=== PATIENT | female | born 1960 | race Hispanic/Latino ===

== ENCOUNTER 2017-12-29 15:44 | Observation (INO) | payer OTHER ==
[~2017-12-29] VITALS: Ht 154.9 cm; Wt 56.4 kg
[2017-12-29] MEDS ORDERED: SODIUM CHLORIDE FLUSH 10 ML SYR INJ PRN ×2 (16:00→18:45)
[2017-12-29] MEDS ORDERED: ASPIRIN 81 MG CHEW TAB PO ONE ×2 (16:00→18:45)
[2017-12-29 16:23] LABS: BASOPHILS # (AUTO) 0.1 (0.0-0.1); BASOPHILS % 0.9 % (0.0-1.0); EOSINOPHILS # (AUTO) 0.3 (0.0-0.4); EOSINOPHILS % 3.9 % (0.0-6.0); HEMATOCRIT 43.1 % (34.2-44.1); HEMOGLOBIN 13.6 g/dL (12.0-16.0); LYMPHOCYTES # (AUTO) 2.1 (1.0-3.2); LYMPHOCYTES % 30.4 % (18.0-39.1); MEAN CORPUSCULAR HEMOGLOBIN 31.2 pg (28-32); MEAN CORPUSCULAR HGB CONC 31.6 g/dL (31-35); MEAN CORPUSCULAR VOLUME 98.9 fL (81-99); MONOCYTES # (AUTO) 0.7 (0.2-0.8); NEUTROPHILS # (AUTO) 3.7 (2.1-6.9); NEUTROPHILS % 54.5 % (38.7-80.0); PLATELET COUNT 279 x10e3/uL (140-360); RED BLOOD COUNT 4.36 x10e6/uL (3.6-5.1); RED CELL DISTRIBUTION WIDTH 12.2 % (11.7-14.4)
--- NOTE | 2017-12-29 16:32 | Diagnostic Imaging Report ---
PROCEDURE: A single AP view of the chest. COMPARISON: None. INDICATIONS: CHEST PAIN FINDINGS: Lines/tubes: None. Lungs: The lungs are well inflated and clear. There is no evidence of pneumonia or pulmonary edema. Pleura: There is no pleural effusion or pneumothorax. Heart and mediastinum: The heart and the mediastinum are unremarkable. Bones: No acute bony abnormality. IMPRESSION: 1. No acute cardiopulmonary disease. Dictated by: Jd Tellez M.D. on 12/29/2017 at 16:41 Electronically approved by: Jd Tellez M.D. on 12/29/2017 at 16:41
[2017-12-29 16:39] LABS: INR 0.81; PROTHROMBIN TIME 11.6 seconds (11.9-14.5)
[2017-12-29 16:40] LABS: PARTIAL THROMBOPLASTIN TIME 29.1 seconds (23.8-35.5)
[2017-12-29 16:44] LABS: ALANINE AMINOTRANSFERASE 74 IU/L (0-55); ALBUMIN 4.1 g/dL (3.5-5.0); ALBUMIN/GLOBULIN RATIO 1.2 (0.8-2.0); ALKALINE PHOSPHATASE 142 IU/L (40-150); ANION GAP 12.6 mmol/L (8-16); BLOOD UREA NITROGEN 26 mg/dL (7-26); BUN/CREATININE RATIO 37 (6-25); CALCIUM 8.7 mg/dL (8.4-10.2); CARBON DIOXIDE 24 mmol/L (22-29); CHLORIDE 106 mmol/L (98-107); CREATINE KINASE 52 IU/L (29-168); CREATININE, SERUM 0.71 mg/dL (0.57-1.11); EST GLOMERULAR FILTRATION RATE > 60 ML/MIN (60-); GLUCOSE 92 mg/dL (74-118); POTASSIUM 4.6 mmol/L (3.5-5.1); SODIUM 138 mmol/L (136-145)
[2017-12-29 16:48] LABS: BILIRUBIN,URINE 1+ (NEGATIVE); COLOR,URINE YELLOW (YELLOW); KETONES,URINE NEGATIVE (NEGATIVE); LEUKOCYTE ESTERASE ,URINE TRACE (NEGATIVE); NITRITE,URINE NEGATIVE (NEGATIVE); PROTEIN,URINE DIPSTICK NEGATIVE (NEGATIVE); URINE UROBILINOGEN 0.2 mg/dL (0.2 - 1)
[2017-12-29 16:50] LABS: CLARITY,URINE SL CLOUDY (CLEAR)
[2017-12-29 16:51] LABS: TROPONIN I 0.016 ng/mL (0-0.300)
[2017-12-29 17:00] LABS: BACTERIA,URINE FEW /HPF; EPITHELIAL CELLS,URINE FEW /LPF; RBC,URINE 0-5 /HPF (0-5)
[2017-12-29] MEDS: ENOXAPARIN SOD INJ 60 MG/0.6 ML SYR SC SCH (20:51)
[2017-12-30] MEDS ORDERED: TOPIRAMATE25 MG PO (01:23)
[2017-12-30] MEDS ORDERED: CARBAMAZEPINE200 MG PO (01:26)
[2017-12-30] MEDS ORDERED: NITROGLYCERIN0.4 MG SL (01:28)
[2017-12-30] MEDS ORDERED: METOPROLOL SUCC25 MG (01:28)
[2017-12-30 01:34] LABS: CREATINE KINASE 45 IU/L (29-168)
[2017-12-30 01:39] VITALS: BP 129/69
[2017-12-30 01:42] LABS: TROPONIN I < 0.001 ng/mL (0-0.300)
[2017-12-30 01:43] VITALS: BP 129/69
[2017-12-30 04:00] VITALS: BP 117/63
[2017-12-30 07:07] LABS: CHOL/HDL RATIO 2.4 (3.0-3.6); CHOLESTEROL 181 MD/DL (0-199); CREATINE KINASE 40 IU/L (29-168); HDL CHOLESTEROL 75 MG/DL (40-60); LDL CHOLESTEROL 94 MG/DL (60-130); TRIGLYCERIDES 62 MG/DL (0-149)
[2017-12-30 07:08] LABS: TROPONIN I < 0.001 ng/mL (0-0.300)
[2017-12-30 08:00] VITALS: BP 112/56
[2017-12-30] MEDS ORDERED: ASPIRIN 81 MG ENTERIC COATED PO SCH (09:00)
[2017-12-30] MEDS: ENOXAPARIN SOD INJ 60 MG/0.6 ML SYR SC SCH (09:03)
[2017-12-30 12:00] VITALS: BP 117/57
--- NOTE | 2017-12-30 16:46 | Progress Note ---
DATE: December 30, 2017 CARDIOLOGY PROGRESS NOTE REQUESTING PHYSICIAN: Dr. Jose Luis Meraz REASON FOR CONSULTATION: Chest pain. HISTORY OF PRESENT ILLNESS: This is a 57-year-old woman with a history of palpitation who presented with complaints of chest pain. She reports she has had chest pain for years, typically occurring once every few months, lasting 5 minutes at a time, and that is relieved with 2 sublingual nitroglycerin. However, she noted more frequent episodes in these last few days, starting Friday night, as well as Friday morning. She described it as a squeezing chest pain starting in the stomach and radiating to her chest. This pain was associated with nausea and jaw pain. She therefore presented to the ER for further evaluation. REVIEW OF SYSTEMS: Negative except as per HPI. PAST MEDICAL HISTORY: Palpitations. PAST SURGICAL HISTORY: 1. Gastric bypass. 2. Cholecystectomy. 3. Tummy tuck. 4. Venous ablation. 5. Hysterectomy. ALLERGIES: PLEASE SEE EMR. MEDICATIONS: Please see medication reconciliation. SOCIAL HISTORY: No tobacco, alcohol, or illicit drugs. FAMILY HISTORY: Pertinent for father with history of 3-vessel CABG. PHYSICAL EXAMINATION: VITAL SIGNS: Temperature 96.2 degrees, pulse 98, respiratory rate 20, blood pressure 117/57, oxygen saturation 98% on room air. GENERAL: Awake, alert, well-developed, well-nourished, in no acute distress. HEENT: Normocephalic, atraumatic. Pupils equal. No scleral icterus. NECK: Supple. No thyromegaly or cervical lymphadenopathy. No carotid bruits. LUNGS: Clear to auscultation bilaterally. No wheezes or crackles. CARDIOVASCULAR: Normal rate, regular rhythm. No murmur. Normal S1, S2. ABDOMEN: Soft, nontender. EXTREMITIES: No edema. NEUROLOGIC: Nonfocal exam. LABORATORIES: Troponin less than 0.001. Cholesterol 181, LDL 94, HDL 75, triglyceride 62. EKG is normal sinus rhythm, minimal voltage criteria for LVH; may be normal variant. IMPRESSION: 1. Chest pain. 2. History of palpitations. RECOMMENDATIONS: Given patient's risk factors, will proceed with treadmill nuclear stress test for further evaluation on the patient's chest pain. She has ruled out for a myocardial infarction. If her stress test is normal, alternate etiologies for her chest pain include coronary spasm and esophageal spasm. Could attempt trial of diltiazem extended release 120 mg p.o. daily and assess for improvement. Assess for change in symptoms. Otherwise, continue current cardiac medications. Thank you for this consult. We will continue to follow. Job#: [id number] [place]
[2017-12-30] MEDS ORDERED: DILTIAZEM HCL 120 MG CAP CD PO SCH (17:30)
--- NOTE | 2017-12-30 17:42 | Cardiology Report ---
DATE OF STUDY: December 30, 2017 PROCEDURE TITLE Rest stress single isotope SPECT imaging with exercise stress and gated SPECT imaging. INDICATIONS: Chest pain. PROCEDURE: The patient performed treadmill exercise using a Rigoberto protocol, exercising for 8 minutes 24 seconds to stage 3, and completing estimated work load of 10.1 metabolic equivalents (METs). The test was terminated due to fatigue. Heart rate was 61 beats per minute at rest and increased to 142 beats per minute at peak exercise, which was 87% of maximum predicted heart rate. The rest blood pressure was 140/84 and increased to 202/90 mm, which is a hypertensive response. Patient denied any symptoms other than fatigue during the procedure. Resting electrocardiogram demonstrated normal sinus rhythm. There were no ST segment changes consistent with myocardial ischemia. Myocardial perfusion imaging was performed at rest following the injection of 11 mCi of tetrofosmin. At peak pharmacologic effect, the patient was injected with 31 mCi of tetrofosmin and exercise continued for one minute. Gated post stress tomographic imaging was performed. The overall quality of the study is fair. Attenuation artifact is absent. Left ventricular cavity is noted to be normal on the rest and stress studies. SPECT images demonstrate homogeneous tracer distribution throughout the myocardium. Gated SPECT imaging reveals normal myocardial thickening and wall motion. Left ventricular ejection fraction was calculated at 68%. IMPRESSION: Normal clinical and ECG exercise stress test, hypertensive response. Exercise myocardial perfusion imaging is normal. Overall left ventricular systolic function was normal without regional wall motion abnormalities. Job#: [id number]
[2017-12-30] MEDS ORDERED: DILTIAZEM 24HR120 M1 PO (17:51)
[2017-12-30] MEDS ORDERED: NEXIUM40 MG PO (17:52)
== END 2017-12-30 18:24 | disposition home or self-care (01) ==
LOC: ER 15:44 → ERHOLD 18:59 → IMCU 12-30 00:43
DX: R07.89 Other chest pain (principal); Z98.84 Bariatric surgery status; Z88.0 Allergy status to penicillin; R00.2 Palpitations
CPT/HCPCS: 36415 ×2; 71010; 78452; 80053; 80061; 80156; 81001; 82550 ×2; 82553 ×2; 82948; 84484 ×2; 85025; 85610; 85730; 93005 ×2; 93017; 96372; 99284; A9502; G0378 ×2; J1650 ×2; 71045

== ENCOUNTER → 2019-03-16 | Day surgery (SDC) | payer OTHER ==
[2019-03-09 17:45] LABS: BASOPHILS # (AUTO) 0.1 (0.0-0.1); BASOPHILS % 1.1 % (0.0-1.0); EOSINOPHILS # (AUTO) 0.3 (0.0-0.4); EOSINOPHILS % 4.1 % (0.0-6.0); HEMATOCRIT 37.5 % (34.2-44.1); HEMOGLOBIN 11.8 g/dL (12.0-16.0); LYMPHOCYTES # (AUTO) 1.9 (1.0-3.2); LYMPHOCYTES % 28.6 % (18.0-39.1); MEAN CORPUSCULAR HEMOGLOBIN 31.8 pg (28-32); MEAN CORPUSCULAR HGB CONC 31.5 g/dL (31-35); MEAN CORPUSCULAR VOLUME 101.1 fL (81-99); MONOCYTES # (AUTO) 0.6 (0.2-0.8); MONOCYTES % 9.6 % (4.4-11.3); NEUTROPHILS # (AUTO) 3.8 (2.1-6.9); NEUTROPHILS % 56.3 % (38.7-80.0); PLATELET COUNT 311 x10e3/uL (140-360); RED BLOOD COUNT 3.71 x10e6/uL (3.6-5.1); RED CELL DISTRIBUTION WIDTH 12.6 % (11.7-14.4)
[2019-03-09 17:53] LABS: INR 0.85; PROTHROMBIN TIME 12.1 seconds (11.9-14.5)
[2019-03-09 18:27] LABS: ALANINE AMINOTRANSFERASE 21 IU/L (0-55); ALBUMIN 3.7 g/dL (3.5-5.0); ALBUMIN/GLOBULIN RATIO 1.2 (0.8-2.0); ALKALINE PHOSPHATASE 111 IU/L (40-150); BLOOD UREA NITROGEN 22 mg/dL (7-26); BUN/CREATININE RATIO 33 (6-25); CALCIUM 8.9 mg/dL (8.4-10.2); CARBON DIOXIDE 26 mmol/L (22-29); CHLORIDE 103 mmol/L (98-107); CREATININE, SERUM 0.67 mg/dL (0.57-1.11); EST GLOMERULAR FILTRATION RATE > 60 ML/MIN (60-); GLUCOSE 104 mg/dL (74-118); SODIUM 133 mmol/L (136-145)
[2019-03-16] VITALS (8 sets, daily range): BP systolic 103–133; BP diastolic 57–77
[~2019-03-16] VITALS: Ht 154.9 cm; Wt 54.4 kg
[~2019-03-16] MED LIST: CARBAMAZEPINE200 MG PO; DILTIAZEM 24HR120 M1 PO; FENTANYL CITRATE/PF 100MCG/2 ML INJ ONE; HEPARIN SOD (PORCINE) 1000 UNIT/ML 30ML ONE; HEPARIN SOD/SOD CHLORIDE 2,000 ML ONE; IOPAMIDOL 370 MG/ML 200 ML INFUS..BTL INJ ONE; LIDOCAINE HCL 2% LOCAL 20 ML VIAL ONE; MECLIZINE HCL12.5 MG PO; METOPROLOL SUCC25 MG; MIDAZOLAM HCL 2 MG/2 ML VIAL ONE; NEXIUM40 MG PO; NITROGLYCERIN/D5W 200 MCG/ML 250 ML ONE; NITROGLYCERIN0.4 MG SL; NORTRIPTYLINE H10 MG PO; RANEXA500 MG PO; SODIUM CHLORIDE 0.9% 1000ML 1,000 ML ONE; TOPIRAMATE25 MG PO; VERAPAMIL HCL 2.5 MG/ML 2 ML VIAL ONE
--- OUTSIDE RECORDS SUMMARY | 2019-03-16 06:18 | XMS REPORT ---
Author Author [facility] Address Unknown Phone Unavailable Care Team Providers Care Industrial Engineering Manager Name Role Phone ISABEL CARRANZA Unavailable Unavailable Problems This patient has no known problems. Allergies, Adverse Reactions, Alerts This patient has no known allergies or adverse reactions. Medications This patient has no known medications. Results Test Description Test Time Test Comments Text Results Atomic Results Result Comments Stress Test - Treadmill ONLY [place] [address] Patient Name : PAUL RODRIGUEZ MR #: [id number] : 1960 Age/Sex: 57/F Adm Physician : ISABEL CARRANZA MD Admit Date : 12/29/17 Location : [facility] Room/Bed : [place] [address] REPORT: Cardiology Report DATE OF STUDY: December 30, 2017 PROCEDURE TITLE Rest stress single isotope SPECT imaging with exercise stress and gated SPECT imaging. INDICATIONS: Chest pain. PROCEDURE: The patient performed treadmill exercise using a Rigoberto protocol, exercising for 8 minutes 24 seconds to stage 3, and completing estimated work load of 10.1 metabolic equivalents (METs). The test was terminated due to fatigue. Heart rate was 61 beats per minute at rest and increased to 142 beats per minute at peak exercise, which was 87% of maximum predicted heart rate. The rest blood pressure was 140/84 and increased to 202/90 mm, which is a hypertensive response. Patient denied any symptoms other than fatigue during the procedure. Resting electrocardiogram demonstrated normal sinus rhythm. There were no ST segment changes consistent with myocardial ischemia. Myocardial perfusion imaging was performed at rest following the injection of 11 mCi of tetrofosmin. At peak pharmacologic effect, the patient was injected with 31 mCi of tetrofosmin and exercise continued for one minute. Gated post stress tomographic imaging was performed. The overall quality of the study is fair. Attenuation artifact is absent. Left ventricular cavity is noted to be normal on the rest and stress studies. SPECT images demonstrate homogeneous tracer distribution throughout the myocardium. Gated SPECT imaging reveals normal myocardial thickening and wall motion. Left ventricular ejection fraction was calculated at 68%. IMPRESSION: Normal clinical and ECG exercise stress test, hypertensive response. Exercise myocardial perfusion imaging is normal. Overall left ventricular systolic function was normal without regional wall motion abnormalities. Job#: [id number] Signature Date Dictated By: CATALINA STEVENSON MD Transcribed By: SMEDS on 12/30/17 <Electronically signed by CATALINA STEVENSON MD><<Signature on File>>01/08/18 1601 COPY TO: CHEST SINGLE (NOT PORTABLE) [place] [address] Patient Name: PAUL RODRIGUEZ MR #: [id number] : 1960 Age/Sex: 57/F Req #: [id number] Adm Physician: Ordered by: SHELBIE PAUL Report #: [id number] Location: ER Room/Bed: Procedure: [id number] DX/CHEST SINGLE (NOT PORTABLE) Exam Date: 12/29/17 Exam Time: 1620 REPORT STATUS: Signed PROCEDURE: A single AP view of the chest. COMPARISON: None. INDICATIONS: CHEST PAIN FINDINGS: Lines/tubes: None. Lungs: The lungs are well inflated and clear. There is no evidence of pneumonia or pulmonary edema. Pleura: There is no pleural effusion or pneumothorax. Heart and mediastinum: The heart and the mediastinum are unremarkable. Bones: No acute bony abnormality. IMPRESSION: 1. No acute cardiopulmonary disease. Dictated by: Jd Purcell M.D. on 12/29/2017 at 16:41 Electronically approved by: Jd Purcell M.D. on 12/29/2017 at 16:41 Dictated By: JD PURCELL MD 1641 Transcribed By: PASTOR on 12/29/17 1641 COPY TO: SHELBIE PAUL
--- OUTSIDE RECORDS SUMMARY | 2019-03-16 06:18 | XMS REPORT | Clinical Summary ---
Author Author [facility] Address Unknown Phone Unavailable Care Team Providers Care Mill Work Name Role Phone Darion Juan MD PCP Allergies Comments Active Allergy Reactions Severity Noted Date Hydrocodone Palpitations High 02/19/2018 Penicillins Rash Medium 02/19/2018 Medications End Date Status Medication Sig Dispensed Refills Start Date Active metoprolol succinate XL TK 1 T PO QD 3 (TOPROL-XL) 25 mg 24 hr 8 tablet Active nitroglycerin (NITROSTAT) Take 0.4 mg 0 0.4 MG SL tablet by mouth as 8 needed. Active topiramate (TOPAMAX) 50 Take 50 mg by 0 MG tablet mouth 2 (two) 8 times a day. Active RANEXA 500 mg 12 hr ER TK 1 T PO 3 tablet BID 8 Active carBAMazepine (TEGretol) Take 200 mg 0 200 mg tablet by mouth 3 (three) times a day. Pt taking 3 tablets at 5AM, 1.5 tablet at 11AM and 1.5 tablet at 5PM. 05/07/2019 Active timolol (TIMOPTIC) 0.25 % Apply 1 drop 10 mL 12 ophthalmic to eye 2 8 solutionIndications: (two) times a Borderline glaucoma day. (glaucoma suspect), bilateral 05/07/2018 Discontinued timolol (TIMOPTIC) 0.25 % Apply 1 drop 10 mL 12 ophthalmic solution to eye 2 8 (two) times a day. Active Problems Problem Noted Date Encounter for cosmetic surgery 03/12/2018 Encounters Care Team Description Date Type Specialty Sherrie Hector Borderline glaucoma (glaucoma suspect), bilateral (Primary Dx) 05/07/2018 Refill Ophthalmology after 03/15/2018 Family History Medical History Relation Name Comments Heart disease Father Diabetes Mother Relation Name Status Comments Brother Alive Father Alive Mother Alive Sister Alive Social History Date Tobacco Use Types Packs/Day Years Used Never Smoker Smokeless Tobacco: Never Used Alcohol Use Drinks/Week oz/Week Comments Yes monthly Sex Assigned at Date Recorded Not on file Industry Job Start Date Occupation Not on file Not on file Not on file Travel End Travel History Travel Start No recent travel history available. Last Filed Vital Signs Not on file Plan of Treatment Health Maintenance Due Date Last Done Comments CERVICAL CANCER SCREENING 01/31/1981 BREAST CANCER SCREENING 01/31/2010 COLON CANCER SCREENING 01/31/2010 SHINGLES VACCINES (#1) 01/31/2010 INFLUENZA VACCINE 07/01/2019 Implants Device Identifier Shelf Expiration Date Model / Serial / Lot Implanted Type Area Manufactur er 04/20/2022 334 1152 / [id number] / [id number] Breast Imp Cpg Cohesive Iii Med Plastic or Right: Breast MENTOR Height High Proj 345cc - Cosmetic WORLDWIDE [id number] - [id number] Implants [employer] Implanted: Qty: 1 on 03/12/2018 by or Tissue Josué Armas MD Expanders or Sets 04/03/2022 334 [id number] / / Breast Imp Cpg Cohesive Iii Med Plastic or Left: Breast MENTOR Height High Proj 345cc - [id number] Cosmetic WORLDWIDE Implanted: Qty: 1 on 03/12/2018 by Implants LLC Josué Armas MD or Tissue Expanders or Sets 12/31/2022 [id number] / / [id number] Drain Wnd [facility] 02/13in Rnd ls Surgical N/A: N/A BARD Fl-Flut W/ 02/13in Trocar - Implants; MEDICAL [id number] Expanders; DIVISION Implanted: Qty: 3 on 03/12/2018 by Extenders; Josué Armas MD Surgical Wires 11/30/2022 [id number] / / [id number] Drain Wnd nl 15fr 02/13in Rnd Hbls Surgical N/A: N/A BARD Fl-Flut W02/13in Trocar - Implants; MEDICAL [id number] Expanders; DIVISION Implanted: Qty: 1 on 03/12/2018 by Extenders; Josué Armas MD Surgical Wires Results Not on fileafter 03/15/2018 Insurance Payer Benefit Subscriber ID Type Phone Address Plan / Group ÁNGELTROGER NEALTNA xxxxxxxxxx HMO HMO,POS,EP O, MC/EC Advance Directives Patient has advance care planning documents on file. For more information, mika snyder contact: Yimi Vinson [address] [place] [address]
--- OUTSIDE RECORDS SUMMARY | 2019-03-16 06:18 | XMS REPORT | Summary of Care ---
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 (Final) - 01/22/18 Other intermediate (current) drug therapy (Final) - Discharge Disposition: Home or Self Care Attending Physician: Vitaly Almaguer MD Referring Physician: Vitaly Almaguer MD Vital Signs Most recent to 1 oldest [Reference Range]: Height 154.94 cm (01/15/18 2:05 PM) Blood Pressure 128/78 mmHg [90-140/60-90 mmHg] (01/15/18 2:31 PM) Respiratory Rate 20 BRMIN [14-20 BRMIN] (01/15/18 2:31 PM) Peripheral Pulse 65 bpm Rate [60-100 bpm] (01/15/18 2:31 PM) Weight 55.966 kg (01/15/18 2:05 PM) Body Mass Index 23.31 m2 (01/15/18 2:05 PM) Problem List Condition Effective Dates Status Health Status Informant Angina at Active rest(Confirmed) Cold(Confirmed) Resolved Migraines(Confirmed) Active Seizure(Confirmed)1 Active 1right eye only Allergies, Adverse Reactions, Alerts Substance Reaction Severity Status penicillins Active HYDROcodone Active Medications Benadryl 50 mg, Route: PO, ONCE, Dosing Weight 55.966, kg, Start date: 01/16/18 7:24:[address], Stop date: 01/16/18 7:24:00 ACCOUNTS PAYABLE ANALYST Start Date: 01/16/18 Stop Date: 01/16/18 Status: Completed carBAMazepine 200 mg oral tablet 200 mg=1 tab, PO, BID, 0 Refill(s) Start Date: 01/15/18 Status: Ordered carBAMazepine 200 mg oral tablet 600 mg=3 tab, PO, Daily, 0 Refill(s) Start Date: 01/15/18 Status: Ordered diltiazem 120 mg, PO, Daily, 0 Refill(s) Start Date: 01/16/18 Status: Ordered esomeprazole 40 mg oral delayed release capsule 40 mg=1 cap, PO, Daily, # 90 cap, 0 Refill(s) Start Date: 01/16/18 Status: Ordered hydromorphone 0.2 mg, 0.2 mL, Route: IV, Drug form: INJ, Q2H, PRN Pain Score 4-6, Start date: 01/16/18 8:30:00 ACCOUNTS PAYABLE ANALYST, Duration: 30 day, Stop date: 02/15/18 8:29:00 CDT Notes: Same as: Dilaudid Start Date: 01/16/18 Stop Date: 01/16/18 Status: Discontinued metoprolol tartrate 25 mg oral tablet 25 mg=1 tab, PO, Bedtime, 0 Refill(s) Start Date: 01/15/18 Status: Ordered morphine Sulfate 2 mg, Route: IVP, Q2H, Dosing Weight 55.966, kg, PRN Pain Score 4-6, Start date: 01/16/18 8:19:00 ACCOUNTS PAYABLE ANALYST, Duration: 30 day, Stop date: 02/15/18 8:18:00 CDT Start Date: 01/16/18 Stop Date: 01/16/18 Status: Deleted nitroglycerin SL Tab 0.4 mg, 1 tab, Route: SL, Drug form: TAB, Q5Min, Dosing Weight 55.966, kg, PRN C hest Pain, Start date: 01/16/18 8:19:00 ACCOUNTS PAYABLE ANALYST, Duration: 3 doses or times, Stop da te: Limited # of times Notes: (Same as:Nitroquick, Nitrostat)"Do Not Crush" Sublingual tablet Start Date: 01/16/18 Stop Date: 01/16/18 Status: Discontinued Nitrostat 0.4 mg sublingual tablet 0.4 mg=1 tab, SL, Q5Min, PRN Chest Pain Start Date: 01/15/18 Status: Ordered normal saline 0.9% IV 1,000 mL 1,000 mL, Rate: 100 ml/hr, Infuse over: 10 hr, Route: IV, Dosing Weight 55.966 k g, Total Volume: 1,000, Start date: 01/16/18 7:24:00 ACCOUNTS PAYABLE ANALYST, Duration: 30 day, Stop date: 02/15/18 7:23:00 CDT, 1.57, m2 Start Date: 01/16/18 Stop Date: 01/16/18 Status: Discontinued ranolazine 500 mg oral tablet, extended release 500 mg=1 tab, PO, BID, # 60 tab, 3 Refill(s) Start Date: 01/16/18 Stop Date: 05/16/18 Status: Ordered Sodium Chloride 0.9% IV 750 mL 750 mL, Rate: 75 ml/hr, Infuse over: 10 hr, Route: IV, Dosing Weight 55.966 kg, Total Volume: 750, Start date: 01/16/18 8:19:00 ACCOUNTS PAYABLE ANALYST, Duration: 10 hr, Stop date: 01/16/18 18:18:00 ACCOUNTS PAYABLE ANALYST, 1.57, m2 Start Date: 01/16/18 Stop Date: 01/16/18 Status: Completed topiramate 50 mg oral tablet 50 mg=1 tab, PO, BID Start Date: 01/15/18 Status: Ordered Vitamin D3 2000 intl units oral tablet 6,000 IntlUnit=3 tab, PO, Daily, 0 Refill(s) Start Date: 01/15/18 Status: Ordered Xanax 0.5 mg oral tablet 0.5 mg, Route: PO, Drug form: TAB, ONCE, Dosing Weight 55.966, kg, Start date: 0 01/16/18 7:24:00 ACCOUNTS PAYABLE ANALYST, Stop date: 01/16/18 7:24:00 ACCOUNTS PAYABLE ANALYST Start Date: 01/16/18 Stop Date: 01/16/18 Status: Completed Results ELECTROLYTES Most recent to 1 oldest [Reference Range]: Sodium Lvl [135-145 141 mEq/L mEq/L] (01/15/18 2:09 PM) Potassium Lvl 3.8 mEq/L [3.5-5.1 mEq/L] (01/15/18 2:09 PM) Chloride Lvl [95-109 109 mEq/L mEq/L] (01/15/18 2:09 PM) CO2 [24-32 mEq/L] 26 mEq/L (01/15/18 2:09 PM) AGAP [10.0-20.0 9.8 mEq/L mEq/L] *LOW* (01/15/18 2:09 PM) CHEM PANEL Most recent to 1 oldest [Reference Range]: Creatinine Lvl 0.50 mg/dL [0.50-1.40 mg/dL] (01/15/18 2:09 PM) eGFR 107 mL/min/1.73m2 1 *NA* (01/15/18 2:09 PM) BUN [7-22 mg/dL] 24 mg/dL *HI* (01/15/18 2:09 PM) B/C Ratio [6-25] 48 *HI* (01/15/18 2:09 PM) Glucose Lvl [70-99 97 mg/dL mg/dL] (01/15/18 2:09 PM) Total Protein 6.8 g/dL [6.4-8.4 g/dL] (01/15/18 2:09 PM) Albumin Lvl [3.5-5.0 3.6 g/dL g/dL] (01/15/18 2:09 PM) Globulin [2.7-4.2 3.2 g/dL g/dL] (01/15/18 2:09 PM) A/G Ratio [0.7-1.6] 1.1 (01/15/18 2:09 PM) Calcium Lvl 8.0 mg/dL [8.5-10.5 mg/dL] *LOW* (01/15/18 2:09 PM) ALT [0-65 unit/L] 48 unit/L (01/15/18 2:09 PM) AST [0-37 unit/L] 30 unit/L (01/15/18 2:09 PM) Alk Phos [39-136 132 unit/L unit/L] (01/15/18 2:09 PM) Bili Total [0.2-1.3 0.2 mg/dL mg/dL] (01/15/18 2:09 PM) 1Result Comment: The eGFR is calculated using the CKD-EPI formula. In most young, healthy individuals the eGFR will be >90 mL/min/1.73m2. The eGFR declines with age. An eGFR of 60-89 may be normal in some populations, particularly the elderly, for whom the CKD-EPI formula has not been extensively validated. Use of the eGFR is not recommended in the following populations: Individuals with unstable creatinine concentrations, including patients and those with serious co-morbid conditions. Patients with extremes in muscle mass or diet. The data above are obtained from the National Kidney Disease Education Program ( NKDEP) which additionally recommends that when the eGFR is used in patients with extremes of body mass index for purposes of drug dosing, the eGFR should be mul tiplied by the estimated BMI. LIPIDS Most recent to 1 oldest [Reference Range]: CHD Risk [3.90-5.80] 1.89 *LOW* (01/15/18 2:29 PM) Chol [<=199 mg/dL] 178 mg/dL (01/15/18 2:29 PM) Trig [<=149 mg/dL] 127 mg/dL (01/15/18 2:29 PM) HDL [>=61 mg/dL] 94 mg/dL (01/15/18 2:29 PM) LDL (Calculated) 59 mg/dL [<=99 mg/dL] (01/15/18 2:29 PM) VLDL 25 *NA* (01/15/18 2:29 PM) HEMATOLOGY Most recent to 1 oldest [Reference Range]: WBC [3.7-10.4 K/CMM] 5.9 K/CMM (01/15/18 2:09 PM) RBC [4.20-5.40 3.85 M/CMM M/CMM] *LOW* (01/15/18 2:09 PM) Hgb [12.0-16.0 g/dL] 12.4 g/dL (01/15/18 2:09 PM) Hct [36.0-48.0 %] 36.7 % (01/15/18 2:09 PM) MCV [80.0-98.0 fL] 95.4 fL (01/15/18 2:09 PM) MCH [27.0-31.0 pg] 32.3 pg *HI* (01/15/18 2:09 PM) MCHC [32.0-36.0 33.8 g/dL g/dL] (2/15/18 2:09 PM) RDW [11.5-14.5 %] 13.0 % (01/15/18 2:09 PM) MPV [7.4-10.4 fL] 8.7 fL (01/15/18 2:09 PM) Platelet [133-450 265 K/CMM K/CMM] (01/15/18 2:09 PM) Segs [45.0-75.0 %] 57.9 % (01/15/18 2:09 PM) Lymphocytes 28.1 % [20.0-40.0 %] (01/15/18 2:09 PM) Monocytes [2.0-12.0 9.7 % %] (01/15/18 2:09 PM) Eosinophils [0.0-4.0 3.2 % %] (01/15/18 2:09 PM) Basophils [0.0-1.0 1.1 % %] *HI* (01/15/18 2:09 PM) Segs-Bands # 3.4 K/CMM [1.5-8.1 K/CMM] (01/15/18 2:09 PM) Lymphocytes # 1.7 K/CMM [1.0-5.5 K/CMM] (01/15/18 2:09 PM) Monocytes # [0.0-0.8 0.6 K/CMM K/CMM] (01/15/18 2:09 PM) Eosinophils # 0.2 K/CMM [0.0-0.5 K/CMM] (01/15/18 2:09 PM) Basophils # [0.0-0.2 0.1 K/CMM K/CMM] (01/15/18 2:09 PM) PT [12.0-14.7 13.2 seconds seconds] (01/15/18 2:29 PM) INR [0.85-1.17] 1.00 (01/15/18 2:29 PM) PTT [22.9-35.8 30.8 seconds seconds] (01/15/18 2:29 PM) Immunizations No data available for this section Procedures Procedure Date Related Diagnosis Body Site Status Abdominoplasty Completed Gastric bypass operation Completed Hysterectomy Completed Stripping of lower limb varicose veins Completed Tubal ligation Completed Social History Social History Type Response Alcohol Current, Type Wine. Frequency: 1-2 times per month. Smoking Status Never smoker; Concerns about tobacco use in household: No; Exposure to Tobacco Smoke None; Cigarette Smoking Last 365 Days No; Reg Smoking Cessation Counseling No entered on: 01/15/18 Assessment and Plan No data available for this section
--- OUTSIDE RECORDS SUMMARY | 2019-03-16 06:18 | XMS REPORT | Continuity of Care Document ---
Author Author [facility] Interface Address Unknown Phone Unavailable Problems Problem Status Onset Date Classification Date Reported Comments Source Atherosclerotic heart disease of [place] coronary artery with unstable angina pectoris 01/23/2018 04/24/2018 [facility] UNK Active 01/09/2018 [facility] Other terminal gauger drug therapy 04/24/2018 [facility] Angina at rest Active Problem 04/24/2018 [facility] Cold Resolved Problem 04/24/2018 [facility] Migraines Active Problem 04/24/2018 [facility] Seizure<sup>1</sup> Active Problem 04/24/2018 right eye only [facility] Medications Medication Details Route Status Patient Instructions Ordering Provider Order Date Source hydromorphone 0.2 mg, 0.2 mL, Route: IV, Drug form: INJ, Q2H, PRN Pain Score 4-6, Start date: 01/16/18 8:30:00 MODELING TEACHER, Duration: 30 day, Stop date: 02/15/18 8:29:00 CDTNotes: Same as: Dilaudid Inactive 01/16/2018 [facility] Nitroglycerin 0.4 mg, 1 tab, Route: SL, Drug form: TAB, Q5Min, Dosing Weight 55.966, kg, PRN Chest Pain, Start date: 01/16/18 8:19:00 MODELING TEACHER, Duration: 3 doses or times, Stop date: Limited # of timesNotes: (Same as:Jamel do Nitrostat) "Do Not Crush" Sublingual tablet Inactive 01/16/2018 [facility] Morphine 2 mg, Route: IVP, Q2H, Dosing Weight 55.966, kg, PRN Pain Score 4-6, Start date: 01/16/18 8:19:00 MODELING TEACHER, Duration: 30 day, Stop date: 02/15/18 8:18:00 CDT Inactive 01/16/2018 [facility] Sodium Chloride 0.9% IV 750 mL 750 mL, Rate: 75 ml/hr, Infuse over: 10 hr, Route: IV, Dosing Weight 55.966 kg, Total Volume: 750, Start date: 01/16/18 8:19:00 MODELING TEACHER, Duration: 10 hr, Stop date: 01/16/18 18:18:00 MODELING TEACHER, 1.57, m2 Inactive 01/16/2018 [facility] 12 HR ranolazine 500 MG Extended Release Tablet 500 mg=1 tab, PO, BID, # 60 tab, 3 Refill(s) Active 01/16/2018 [facility] normal saline 0.9% IV 1,000 mL 1,000 mL, Rate: 100 ml/hr, Infuse over: 10 hr, Route: IV, Dosing Weight 55.966 kg, Total Volume: 1,000, Start date: 01/16/18 7:24:00 MODELING TEACHER, Duration: 30 day, Stop date: 02/15/18 7:23:00 CDT, 1.57, m2 Inactive 01/16/2018 [facility] Alprazolam 0.5 MG Oral Tablet [Xanax] 0.5 mg, Route: PO, Drug form: TAB, ONCE, Dosing Weight 55.966, kg, Start date: 01/16/18 7:24:00 MODELING TEACHER, Stop date: 01/16/18 7:24:00 MODELING TEACHER Inactive 01/16/2018 [facility] Benadryl 50 mg, Route: PO, ONCE, Dosing Weight 55.966, kg, Start date: 01/16/18 7:24:00 MODELING TEACHER, Stop date: 01/16/18 7:24:00 MODELING TEACHER Inactive 01/16/2018 [facility] Esomeprazole 40 MG Enteric Coated Capsule 40 mg=1 cap, PO, Daily, # 90 cap, 0 Refill(s) Active 01/16/2018 [facility] Diltiazem 120 mg, PO, Daily, 0 Refill(s) Active 01/16/2018 [facility] Vitamin D3 2000 intl units oral tablet 6,000 IntlUnit=3 tab, PO, Daily, 0 Refill(s) Active 01/15/2018 [facility] topiramate 50 mg oral tablet 50 mg=1 tab, PO, BID Active 01/15/2018 [facility] Nitroglycerin 0.4 MG Sublingual Tablet [Nitrostat] 0.4 mg=1 tab, SL, Q5Min, PRN Chest Pain Active 01/15/2018 [facility] carBAMazepine 200 mg oral tablet 200 mg=1 tab, PO, BID, 0 Refill(s) Active 01/15/2018 [facility] carBAMazepine 200 mg oral tablet 600 mg=3 tab, PO, Daily, 0 Refill(s) Active 01/15/2018 [facility] metoprolol tartrate 25 mg oral tablet 25 mg=1 tab, PO, Bedtime, 0 Refill(s) Active 01/15/2018 [facility] Allergies, Adverse Reactions, Alerts Substance Category Reaction Severity Reaction type Status Date Reported Comments Source penicillins Assertion Drug allergy Active [facility] HYDROcodone Assertion Drug allergy Active [facility] Immunizations Immunization Date Given Site Status Last Updated Comments Source Results Order Name Results Value Reference Range Date Interpretation Comments Source HEMATOLOGY INR 1.00 0.85 - 1.17 01/15/2018 [facility] HEMATOLOGY PT 13.2 s 12.0 - 14.7 01/15/2018 [facility] HEMATOLOGY PTT 30.8 s 22.9 - 35.8 01/15/2018 [facility] LIPIDS LDL (Calculated) 59 mg/dL <=99 mg/dL 01/15/2018 [facility] LIPIDS VLDL 25 01/15/2018 [facility] LIPIDS HDL 94 mg/dL >=61 mg/dL 01/15/2018 [facility] LIPIDS Chol 178 mg/dL <=199 mg/dL 01/15/2018 [facility] LIPIDS Trig 127 mg/dL <=149 mg/dL 01/15/2018 [facility] LIPIDS CHD Risk 1.89 3.90 - 5.80 01/15/2018 [facility] CHEM PANEL eGFR 107 mL/min/1.73m2 01/15/2018 Result Comment: The eGFR is calculated using the [...] from the National Kidney Disease Education Program (NKDEP) which additionally recommends that when the eGFR is used in patients with extremes of body mass index for purposes of drug dosing, the eGFR should be multiplied by the estimated BMI. [facility] CHEM PANEL Calcium Lvl 8.0 mg/dL 8.5 - 10.5 01/15/2018 [facility] CHEM PANEL Alk Phos 132 unit/L 39 - 136 01/15/2018 [facility] CHEM PANEL Bili Total 0.2 mg/dL 0.2 - 1.3 01/15/2018 [facility] CHEM PANEL AST 30 unit/L 0 - 37 01/15/2018 [facility] CHEM PANEL ALT 48 unit/L 0 - 65 01/15/2018 [facility] CHEM PANEL Albumin Lvl 3.6 g/dL 3.5 - 5.0 01/15/2018 [facility] CHEM PANEL Total Protein 6.8 g/dL 6.4 - 8.4 01/15/2018 [facility] CHEM PANEL CO2 26 meq/L 24 - 32 01/15/2018 [facility] CHEM PANEL Chloride Lvl 109 meq/L 95 - 109 01/15/2018 [facility] CHEM PANEL Potassium Lvl 3.8 meq/L 3.5 - 5.1 01/15/2018 [facility] CHEM PANEL Sodium Lvl 141 meq/L 135 - 145 01/15/2018 [facility] CHEM PANEL BUN 24 mg/dL 7 - 22 01/15/2018 [facility] CHEM PANEL Creatinine Lvl 0.50 mg/dL 0.50 - 1.40 01/15/2018 [facility] CHEM PANEL Glucose Lvl 97 mg/dL 70 - 99 01/15/2018 [facility] CHEM PANEL Globulin 3.2 g/dL 2.7 - 4.2 01/15/2018 [facility] CHEM PANEL A/G Ratio 1.1 0.7 - 1.6 01/15/2018 [facility] CHEM PANEL AGAP 9.8 meq/L 10.0 - 20.0 01/15/2018 [facility] CHEM PANEL B/C Ratio 48 6 - 25 01/15/2018 [facility] HEMATOLOGY MPV 8.7 fL 7.4 - 10.4 01/15/2018 [facility] HEMATOLOGY Platelet 265 K/CMM 133 - 450 01/15/2018 [facility] HEMATOLOGY RDW 13.0 % 11.5 - 14.5 01/15/2018 [facility] HEMATOLOGY MCHC 33.8 g/dL 32.0 - 36.0 01/15/2018 [facility] HEMATOLOGY MCH 32.3 pg 27.0 - 31.0 01/15/2018 [facility] HEMATOLOGY MCV 95.4 fL 80.0 - 98.0 01/15/2018 [facility] HEMATOLOGY Hgb 12.4 g/dL 12.0 - 16.0 01/15/2018 [facility] HEMATOLOGY RBC 3.85 M/CMM 4.20 - 5.40 01/15/2018 [facility] HEMATOLOGY WBC 5.9 K/CMM 3.7 - 10.4 01/15/2018 [facility] HEMATOLOGY Hct 36.7 % 36.0 - 48.0 01/15/2018 [facility] HEMATOLOGY Basophils # 0.1 K/CMM 0.0 - 0.2 01/15/2018 [facility] HEMATOLOGY Lymphocytes # 1.7 K/CMM 1.0 - 5.5 01/15/2018 [facility] HEMATOLOGY Segs 57.9 % 45.0 - 75.0 01/15/2018 [facility] HEMATOLOGY Monocytes 9.7 % 2.0 - 12.0 01/15/2018 [facility] HEMATOLOGY Lymphocytes 28.1 % 20.0 - 40.0 01/15/2018 [facility] HEMATOLOGY Basophils 1.1 % 0.0 - 1.0 01/15/2018 [facility] HEMATOLOGY Eosinophils 3.2 % 0.0 - 4.0 01/15/2018 [facility] HEMATOLOGY Monocytes # 0.6 K/CMM 0.0 - 0.8 01/15/2018 [facility] HEMATOLOGY Eosinophils # 0.2 K/CMM 0.0 - 0.5 01/15/2018 [facility] HEMATOLOGY Segs-Bands # 3.4 K/CMM 1.5 - 8.1 01/15/2018 [facility] Vital Signs Vital Sign Value Date Comments Source Heart Rate 65 01/15/2018 [facility] Respitory Rate 20 01/15/2018 [facility] Systolic (mm Hg) 128 01/15/2018 [facility] Diastolic (mm Hg) 78 01/15/2018 [facility] Weight 55.966 01/15/2018 [facility] Height 154.94 cm 01/15/2018 [facility] BMI Calculated 23.31 01/15/2018 [facility] Encounters Location Location Details Encounter Type Encounter Number Reason For Visit Attending Provider ADM Date DC Date Status Source [facility] Bedded Outpatient [id number] Vitaly Almaguer 01/16/2018 01/16/2018 [facility] Procedures Procedure Code Date Perfomer Comments Source Abdominoplasty [id number] [facility] Gastric bypass operation [id number] [facility] Hysterectomy [id number] [facility] Stripping of lower limb varicose veins [id number] [facility] Tubal ligation [id number] [facility]
--- NOTE | 2019-03-16 08:11 | NUR ---
0811AM received pt in [employer] [facility] #9. Identiferx2. Report received from Edwin CARDENAS Rt TR band approach 10cc balloon. ok to titrate at 830am and dc 9am. Dr Almaguer spoke with family and pt Pt has clear arteries. No fix LHC, Back to baseline orientation. Resp shallow and regular 10% RA.Abdomen soft and non tender denies necessity to defecate or urinate. Bilateral femoral pulses present. Sit up and tolerating po intake well. No gross signs of pain,pallor,pressure or dysthymia. Monitor Sinus bonnie w/o ectopics. Reviewed POC with and pt and dc papers signed and copies of papers and prescription given to pt for addiitonal drug isosorbide long acting vasodilator for pt to fill from home RX. Denies CP or SOB left hand iv 20g intact wiht 0.9ns infusing no s/s infiltration. christal/dara
--- NOTE | 2019-03-16 08:30 | NUR ---
0830 TR band site w/o s/s pain pallor,bleeding or hematoma 10cc in band -2cc balance 10cc denies c/o stable vs and ekg
--- NOTE | 2019-03-16 09:00 | NUR ---
0900 TR band titration continued -2cc positive 6cc noted bleeding returned 2cc air No active signs pain,pallor,bleeding or hematoma vs and ekg stable To restart titration at 930am ds/rn
--- NOTE | 2019-03-16 09:00 | NUR ---
0900am hold continued 0915am hold titration continued 0930 -2cc site w/o hematoma or bleeding. positive 8cc to balloon family at bedside no s/s CP or SOB ds/rn
--- NOTE | 2019-03-16 09:45 | NUR ---
0945 Tr BAnd titration continued -2cc positive 6cc 1000 -2cc Positive 4cc 1015 -2cc Positve 2cc 1030 -2cc Tr band titration completed coban dressing with arm splint in place. POC discussed with family Aware of importance of f/o care . Has copies of DC papers. Discharged with armor reconnaissance vehicle driver to home, Site w/o gross signs of pain,pallor,pressure Adequate radial pulse. Denies CP or SOB. ds/rn
--- NOTE | 2019-03-16 10:15 | NUR ---
1015 discharged No gross issues pain,pallor,pressure or dysrhythmia. Aware of importance of f/o care Has copies dc papers to care per w/c with drive.Iv out no sign infiltration. Denies co CP or SOB. ds/rn
--- NOTE | 2019-03-16 11:02 | Operative Report ---
DATE OF PROCEDURE: 03/16/2019 SURGEON: Vitaly Almaguer MD REPORT TITLE: Cardiac Office Mail Clerk Procedure. INDICATION: Coronary artery disease, abnormal stress test, unstable angina. PROCEDURES PERFORMED: 1. Left heart catheterization, selective coronary angiography, left ventriculography. 2. Deployment of right wrist TR band. COMPLICATIONS: None. RECOMMENDATIONS: Medical therapy. DESCRIPTION OF PROCEDURE: Access was obtained in the right radial artery using ultrasound guidance. A 5-Romanian sheath was placed. Diagnostic coronary angiogram revealed no angiographic coronary artery disease. Excellent flow in all vessels. LV ejection fraction 70%. LV end-diastolic pressure of 5. No gradient across the aortic valve on pullback. Right wrist sheath and guide were removed. TR band applied. The patient discharged home same day. Vitaly Almaguer MD KSB/MODL /[id number]
== END | disposition home or self-care (01) ==
LOC: CATH LAB 06:15
PROVIDERS: ATTEND Internal Medicine Interventional Cardiology
DX: I25.110 Atherosclerotic heart disease of native coronary artery with unstable angina pectoris (principal); R94.39 Abnormal result of other cardiovascular function study; I99.8 Other disorder of circulatory system; I87.2 Venous insufficiency (chronic) (peripheral); E78.2 Mixed hyperlipidemia; G43.909 Migraine, unspecified, not intractable, without status migrainosus; Z88.6 Allergy status to analgesic agent; Z88.0 Allergy status to penicillin; Z01.812 Encounter for preprocedural laboratory examination; Z79.899 Other long term (current) drug therapy; Z86.2 Personal history of diseases of the blood and blood-forming organs and certain disorders involving the immune mechanism
CPT/HCPCS: 36415; 80053; 85025; 85610; 93458; C1769 ×2; C1887; J1644; J2001; J2250; J7030; Q9967

== ENCOUNTER 2019-04-09 04:20 | Emergency (ER) | payer OTHER ==
[~2019-04-09] VITALS: Ht 154.9 cm; Wt 54.4 kg
[~2019-04-09 04:20] MED LIST changes: -FENTANYL CITRATE/PF 100MCG/2 ML INJ ONE; -HEPARIN SOD (PORCINE) 1000 UNIT/ML 30ML ONE; -HEPARIN SOD/SOD CHLORIDE 2,000 ML ONE; -IOPAMIDOL 370 MG/ML 200 ML INFUS..BTL INJ ONE; -LIDOCAINE HCL 2% LOCAL 20 ML VIAL ONE; -MIDAZOLAM HCL 2 MG/2 ML VIAL ONE; -NITROGLYCERIN/D5W 200 MCG/ML 250 ML ONE; -SODIUM CHLORIDE 0.9% 1000ML 1,000 ML ONE; -VERAPAMIL HCL 2.5 MG/ML 2 ML VIAL ONE
--- OUTSIDE RECORDS SUMMARY | 2019-04-09 04:22 | XMS REPORT | Clinical Summary ---
Author Author [facility] Address Unknown Phone Unavailable Care Team Providers Care Senior Art Director Name Role Phone Darion Juan MD PCP [...] bilateral (Primary Dx) 05/07/2018 Refill Ophthalmology after 04/08/2018 Family History Medical History Relation Name Comments [...] Area Manufactur er 04/20/2022 [id number] 1152 / [id number] / [id number] Breast Imp Cpg Cohesive Iii Med Plastic or Right: Breast MENTOR Height High Proj 345cc - Cosmetic WORLDWIDE [id number] - [id number] [employer]plants [employer] Implanted: Qty: 1 on 03/12/2018 by or Tissue Josué Armas MD Expanders or Sets 04/03/2022 [id number] [id number] / / Breast Imp Cpg Cohesive Iii Med Plastic or Left: Breast MENTOR Height High Proj 345cc - [id number] Cosmetic WORLDWIDE Implanted: Qty: 1 on 03/12/2018 by Implants LLC Josué Armas MD or Tissue Expanders or Sets 12/31/2022 [id number] / / [id number] Drain Wnd nl 15fr 02/13in Rnd ls Surgical N/A: N/A BARD Fl-Flut W/ 02/13in Trocar - Implants; MEDICAL [id number] Expanders; DIVISION Implanted: Qty: 3 on 03/12/2018 by Extenders; Josué Armas MD Surgical Wires 11/30/2022 [id number] / / [id number] Drain Wnd nl 15fr 16in Rnd Hbls Surgical N/A: N/A BARD Fl-Flut W02/13in Trocar - Implants; MEDICAL [id number] Expanders; DIVISION Implanted: Qty: 1 on 03/12/2018 by Extenders; Josué Armas MD Surgical Wires Results Not on fileafter 04/08/2018 Insurance Payer Benefit Subscriber ID Type Phone Address Plan / Group ÁNGELTROGER NEALTNA xxxxxxxxxx HMO HMO,POS,EP O, MC/EC Advance Directives Patient has advance care planning documents on file. For more information, mika snyder contact: Yimi Vinson [address] [place] [address]
[2019-04-09] MEDS ORDERED: ONDANSETRON HCL INJ 2MG/ML 2ML 2 MG/ML VIAL IV STA (04:25)
[2019-04-09] MEDS ORDERED: FAMOTIDINE 20 MG/2 ML VIAL IV STA (04:28)
[2019-04-09] MEDS ORDERED: SODIUM CHLORIDE 0.9% 1000ML 1,000 ML IV SCH (04:30)
[2019-04-09] MEDS ORDERED: MORPHINE SULFATE INJ 4 MG/ML INJ 1ML IV PRN (04:30)
[2019-04-09 04:40] LABS: BASOPHILS % 0.3 % (0.0-1.0); HEMATOCRIT 39.6 % (34.2-44.1); HEMOGLOBIN 13.1 g/dL (12.0-16.0); LYMPHOCYTES # (AUTO) 0.6 (1.0-3.2); LYMPHOCYTES % 5.3 % (18.0-39.1); MEAN CORPUSCULAR HEMOGLOBIN 32.2 pg (28-32); MEAN CORPUSCULAR HGB CONC 33.1 g/dL (31-35); MEAN CORPUSCULAR VOLUME 97.3 fL (81-99); MONOCYTES # (AUTO) 0.5 (0.2-0.8); MONOCYTES % 4.1 % (4.4-11.3); NEUTROPHILS # (AUTO) 10.9 (2.1-6.9); NEUTROPHILS % 89.9 % (38.7-80.0); PLATELET COUNT 319 x10e3/uL (140-360); RED BLOOD COUNT 4.07 x10e6/uL (3.6-5.1); RED CELL DISTRIBUTION WIDTH 12.5 % (11.7-14.4)
[2019-04-09 04:42] LABS: CLARITY,URINE SL CLOUDY (CLEAR); COLOR,URINE AMBER (YELLOW); LEUKOCYTE ESTERASE ,URINE NEGATIVE (NEGATIVE); NITRITE,URINE NEGATIVE (NEGATIVE); PROTEIN,URINE DIPSTICK TRACE (NEGATIVE)
[2019-04-09 04:43] LABS: BACTERIA,URINE RARE /HPF; BILIRUBIN,URINE 1+ (NEGATIVE); EPITHELIAL CELLS,URINE FEW /LPF; KETONES,URINE NEGATIVE (NEGATIVE); RBC,URINE 0-5 /HPF (0-5); URINE UROBILINOGEN 0.2 mg/dL (0.2 - 1); WBC,URINE (MAN) 0-5 /HPF (0-5)
[2019-04-09] MEDS ORDERED: DIATRIZOATE MEGL/DIATRIZOA SOD 30 ML BTL PO ONE (04:53)
[2019-04-09 05:10] LABS: ALANINE AMINOTRANSFERASE 29 IU/L (0-55); ALBUMIN 4.1 g/dL (3.5-5.0); ALBUMIN/GLOBULIN RATIO 1.3 (0.8-2.0); ALKALINE PHOSPHATASE 104 IU/L (40-150); AMYLASE 40 U/L (25-125); ANION GAP 15.4 mmol/L (8-16); BLOOD UREA NITROGEN 29 mg/dL (7-26); BUN/CREATININE RATIO 40 (6-25); CALCIUM 9.6 mg/dL (8.4-10.2); CARBON DIOXIDE 20 mmol/L (22-29); CHLORIDE 106 mmol/L (98-107); CREATININE, SERUM 0.73 mg/dL (0.57-1.11); EST GLOMERULAR FILTRATION RATE > 60 ML/MIN (60-); GLUCOSE 169 mg/dL (74-118); LIPASE 5 U/L (8-78); POTASSIUM 4.4 mmol/L (3.5-5.1); SODIUM 137 mmol/L (136-145)
[2019-04-09] MEDS ORDERED: SODIUM CHLORIDE 0.9% 50ML 50 ML ONE (05:44)
[2019-04-09] MEDS ORDERED: IOPAMIDOL 370 MG/ML 200 ML INFUS..BTL INJ ONE (05:44)
--- NOTE | 2019-04-09 06:24 | Diagnostic Imaging Report ---
EXAMINATION: CT of the abdomen and pelvis with contrast. TECHNIQUE: Helical CT images of the abdomen and pelvis were performed from the lung bases to the lesser trochanters after the intravenous administration of 100 cc of Isovue 300 and the oral administration of Gastro. Coronal and sagittal reformatted images were obtained. Dose modulation, iterative reconstruction, and/or weight based adjustment of the mA/kV was utilized to reduce the radiation dose to as low as reasonably achievable. COMPARISON: None. CLINICAL HISTORY:Abdominal pain, constipation DISCUSSION: ABDOMEN/PELVIS: LOWER THORAX:Unremarkable. HEPATOBILIARY: No focal hepatic lesions. No intra-or extrahepatic biliary ductal dilation. Cholecystectomy. SPLEEN: No splenomegaly. PANCREAS: No focal masses or ductal dilatation. ADRENALS: No adrenal nodules. KIDNEYS/URETERS: No hydronephrosis, stones, or solid mass lesions. PELVIC ORGANS/BLADDER: The bladder is normal. PERITONEUM/RETROPERITONEUM: No free air or fluid. LYMPH NODES: No intra-abdominal, retroperitoneal, pelvic or inguinal lymphadenopathy. VESSELS: The celiac trunk,superior and inferior mesenteric and bilateral renal arteries are patent The portal, superior mesenteric and splenic veins are patent. GI TRACT: No distention or wall thickening. Prior bariatric surgery. Appendix is normal. BONES AND SOFT TISSUE: No bony destructive lesions. [Dilatation. IMPRESSION: No acute CT finding. Prior bariatric surgery. Prior cholecystectomy. Signed by: Dr. Darion Gore M.D. on 04/09/2019 6:20 AM
== END 2019-04-09 06:39 | disposition home or self-care (01) ==
LOC: ER 04:20
DX: R10.33 Periumbilical pain (principal); R10.84 Generalized abdominal pain; R11.0 Nausea; K59.00 Constipation, unspecified
CPT/HCPCS: 36415; 74177; 80053; 81001; 82150; 83690; 85025; 96374; 99284; J2270; J2405; J7030; Q9967

== ENCOUNTER → 2019-07-09 | Day surgery (SDC) | payer OTHER ==
[~2019-07-09] MED LIST changes: +EPHEDRINE SULFATE INJ 50 MG/10 ML SYR ONE; +FENTANYL CITRATE/PF 100MCG/2 ML INJ ONE; +GLUCAGON FOR INJ 1 MG VIAL ONE; +HYOSCYAMINE 0.125 MG TAB ONE; +MIDAZOLAM HCL 2 MG/2 ML VIAL ONE; +PROPOFOL IV EMULSION 10 MG/ML 50 ML VIAL ONE
--- OUTSIDE RECORDS SUMMARY | 2019-07-09 06:08 | XMS REPORT | Continuity of Care Document ---
Author Author [employer] [facility] Address Unknown Phone Unavailable Care Team Providers Care Press Officer Name Role Phone [facility] Unavailable Unavailable Problems Problem Status Onset Date Classification Date Reported Comments Source Atherosclerotic heart disease of [place] coronary artery with unstable angina pectoris 01/23/2018 04/24/2018 [facility] UNK Active 01/09/2018 [facility] Other intermediate school teacher drug therapy 04/24/2018 [facility] Angina at rest Active Problem 04/24/2018 [facility] Cold Resolved Problem 04/24/2018 [facility] Migraines Active Problem 04/24/2018 [facility] Seizure1 Active Problem 04/24/2018 right eye only [facility] Medications Medication Details Route Status Patient Instructions Ordering Provider Order Date Source hydromorphone 0.2 mg, 0.2 mL, Route: IV, Drug form: INJ, Q2H, PRN Pain Score 4-6, Start date: 01/16/18 8:30:00 FIRESTOPPER INSTALLER, Duration: 30 day, Stop date: 02/15/18 8:29:00 CDTNotes: Same as: Dilaudid Inactive 01/16/2018 [facility] Nitroglycerin 0.4 mg, 1 tab, Route: SL, Drug form: TAB, Q5Min, Dosing Weight 55.966, kg, PRN Chest Pain, Start date: 01/16/18 8:19:00 FIRESTOPPER INSTALLER, Duration: 3 doses or times, Stop date: Limited # of timesNotes: (Same as:N itroquick, Nitrostat) "Do Not Crush" Sublingual tablet Inactive 01/16/2018 [facility] Morphine 2 mg, Route: IVP, Q2H, Dosing Weight 55.966, kg, PRN Pain Score 4-6, Start date: 01/16/18 8:19:00 FIRESTOPPER INSTALLER, Duration: 30 day, Stop date: 02/15/18 8:18:00 CDT Inactive 01/16/2018 [facility] Sodium Chloride 0.9% IV 750 mL 750 mL, Rate: 75 ml/hr, Infuse over: 10 hr, Route: IV, Dosing Weight 55.966 kg, Total Volume: 750, Start date: 01/16/18 8:19:00 FIRESTOPPER INSTALLER, Duration: 10 hr, Stop date: 01/16/18 18:18:00 FIRESTOPPER INSTALLER, 1.57, m2 Inactive 01/16/2018 [facility] 12 HR ranolazine 500 MG Extended Release Tablet 500 mg=1 tab, PO, BID, # 60 tab, 3 Refill(s) Active 01/16/2018 [facility] normal saline 0.9% IV 1,000 mL 1,000 mL, Rate: 100 ml/hr, Infuse over: 10 hr, Route: IV, Dosing Weight 55.966 kg, Total Volume: 1,000, Start date: 01/16/18 7:24:00 FIRESTOPPER INSTALLER, Duration: 30 day, Stop date: 02/15/18 7:23:00 CDT, 1.57, m2 Inactive 01/16/2018 [facility] Alprazolam 0.5 MG Oral Tablet [Xanax] 0.5 mg, Route: PO, Drug form: TAB, ONCE, Dosing Weight 55.966, kg, Start date: 01/16/18 7:24:00 FIRESTOPPER INSTALLER, Stop date: 01/16/18 7:24:00 FIRESTOPPER INSTALLER Inactive 01/16/2018 [facility] Benadryl 50 mg, Route: PO, ONCE, Dosing Weight 55.966, kg, Start date: 01/16/18 7:24:00 FIRESTOPPER INSTALLER, Stop date: 01/16/18 7:24:00 FIRESTOPPER INSTALLER Inactive 01/16/2018 [facility] Esomeprazole 40 MG Enteric Coated Capsule 40 mg=1 cap, PO, Daily, # 90 cap, 0 Refill(s) Active 01/16/2018 [facility] Diltiazem 120 mg, PO, Daily, 0 Refill(s) Active 01/16/2018 [facility] Vitamin D3 2000 intl units oral tablet 6,000 IntlUnit=3 tab, PO, Daily, 0 Refill(s) Active 01/15/2018 [facility] topiramate 50 mg oral tablet 50 mg=1 tab, PO, BID Active 01/15/2018 [facility] Nitroglycerin 0.4 MG Sublingual Tablet [Nitrostat] 0.4 mg=1 tab, SL, Q5Min, PRN Chest Pain Active 01/15/2018 [facility] carBAMazepine 200 mg oral tablet 200 mg=1 tab, PO, BID, 0 Refill(s) Active 01/15/2018 [facility] carBAMazepine 200 mg oral tablet 600 mg=3 tab, PO, Daily, 0 Refill(s) Active 01/15/2018 [facility] metoprolol tartrate 25 mg oral tablet 25 mg=1 tab, PO, Bedtime, 0 Refill(s) Active 01/15/2018 [facility] Allergies, Adverse Reactions, Alerts Substance Category Reaction Severity Reaction type Status Date Reported Comments Source penicillins Assertion Drug allergy Active [facility] HYDROcodone Assertion Drug allergy Active [facility] Immunizations No Data Provided for This Section Results Order Name Results Value Reference Range Date Interpretation Comments Source HEMATOLOGY INR 1.00 0.85 - 1.17 01/15/2018 [facility] HEMATOLOGY PT 13.2 12.0 - 14.7 01/15/2018 [facility] HEMATOLOGY PTT 30.8 22.9 - 35.8 01/15/2018 [facility] LIPIDS LDL (Calculated) 59 <=99 mg/dL 01/15/2018 [facility] LIPIDS VLDL 25 01/15/2018 [facility] HDL 94 >=61 mg/dL 01/15/2018 [facility] LIPIDS Chol 178 <=199 mg/dL 01/15/2018 [facility] LIPIDS Trig 127 <=149 mg/dL 01/15/2018 [facility] LIPIDS CHD Risk 1.89 3.90 - 5.80 01/15/2018 [facility] CHEM PANEL eGFR 107 01/15/2018 Result Comment: The eGFR is calculated [...] should be multiplied by the estimated BMI. [facility] CHEM PANEL Calcium Lvl 8.0 8.5 - 10.5 01/15/2018 [facility] CHEM PANEL Alk Phos 132 39 - 136 01/15/2018 [facility] CHEM PANEL Bili Total 0.2 0.2 - 1.3 01/15/2018 [facility] CHEM PANEL AST 30 0 - 37 01/15/2018 [facility] CHEM PANEL ALT 48 0 - 65 01/15/2018 [facility] CHEM PANEL Albumin Lvl 3.6 3.5 - 5.0 01/15/2018 [facility] CHEM PANEL Total Protein 6.8 6.4 - 8.4 01/15/2018 [facility] CHEM PANEL CO2 26 24 - 32 01/15/2018 [facility] CHEM PANEL Chloride Lvl 109 95 - 109 01/15/2018 [facility] CHEM PANEL Potassium Lvl 3.8 3.5 - 5.1 01/15/2018 [facility] CHEM PANEL Sodium Lvl 141 135 - 145 01/15/2018 [facility] CHEM PANEL BUN 24 7 - 22 01/15/2018 [facility] CHEM PANEL Creatinine Lvl 0.50 0.50 - 1.40 01/15/2018 [facility] CHEM PANEL Glucose Lvl 97 70 - 99 01/15/2018 [facility] CHEM PANEL Globulin 3.2 2.7 - 4.2 01/15/2018 [facility]M PANEL A/G Ratio 1.1 0.7 - 1.6 01/15/2018 [facility] CHEM PANEL AGAP 9.8 10.0 - 20.0 01/15/2018 [facility] CHEM PANEL B/C Ratio 48 6 - 25 01/15/2018 [facility] HEMATOLOGY MPV 8.7 7.4 - 10.4 01/15/2018 [facility] HEMATOLOGY Platelet 265 133 - 450 01/15/2018 [facility] HEMATOLOGY RDW 13.0 11.5 - 14.5 01/15/2018 [facility] HEMATOLOGY MCHC 33.8 32.0 - 36.0 01/15/2018 [facility] HEMATOLOGY MCH 32.3 27.0 - 31.0 01/15/2018 [facility] HEMATOLOGY MCV 95.4 80.0 - 98.0 01/15/2018 [facility] HEMATOLOGY Hgb 12.4 12.0 - 16.0 01/15/2018 [facility] HEMATOLOGY RBC 3.85 4.20 - 5.40 01/15/2018 [facility] HEMATOLOGY WBC 5.9 3.7 - 10.4 01/15/2018 [facility] HEMATOLOGY Hct 36.7 36.0 - 48.0 01/15/2018 [facility] HEMATOLOGY Basophils # 0.1 0.0 - 0.2 01/15/2018 [facility] HEMATOLOGY Lymphocytes # 1.7 1.0 - 5.5 01/15/2018 [facility] HEMATOLOGY Segs 57.9 45.0 - 75.0 01/15/2018 [facility] HEMATOLOGY Monocytes 9.7 2.0 - 12.0 01/15/2018 [facility] HEMATOLOGY Lymphocytes 28.1 20.0 - 40.0 01/15/2018 [facility] HEMATOLOGY Basophils 1.1 0.0 - 1.0 01/15/2018 [facility] HEMATOLOGY Eosinophils 3.2 0.0 - 4.0 01/15/2018 [facility] HEMATOLOGY Monocytes # 0.6 0.0 - 0.8 01/15/2018 [facility] HEMATOLOGY Eosinophils # 0.2 0.0 - 0.5 01/15/2018 [facility] HEMATOLOGY Segs-Bands # 3.4 1.5 - 8.1 01/15/2018 [facility] Pathology Reports No Data Provided for This Section Diagnostic Reports No Data Provided for This Section Consultation Notes No Data Provided for This Section Discharge Summaries No Data Provided for This Section History and Physicals No Data Provided for This Section Vital Signs Vital Sign Value Date Comments Source Heart Rate 65 01/15/2018 [facility] Respitory Rate 20 01/15/2018 [facility] Systolic (mm Hg) 128 01/15/2018 [facility] Diastolic (mm Hg) 78 01/15/2018 [facility] Weight 55.966 01/15/2018 [facility] Height 154.94 cm 01/15/2018 [facility] BMI Calculated 23.31 01/15/2018 [facility] Encounters Location Location Details Encounter Type Encounter Number Reason For Visit Attending Provider ADM Date DC Date Status Source [facility] Bedded Outpatient [id number] Vitaly Almaguer 01/16/2018 01/16/2018 [facility] Procedures Procedure Code Date Perfomer Comments Source Abdominoplasty [id number] [facility] Gastric bypass operation [id number] [facility] Hysterectomy [id number] [facility] Stripping of lower limb varicose veins [id number] [facility] Tubal ligation [id number] [facility] Assessment and Plan No Data Provided for This Section Plan of Care No Data Provided for This Section Social History Social History Date Source Social History TypeResponse Alcohol Current, Type Wine. Frequency: 1-2 times per month. Smoking Status Never smoker; Concerns about tobacco use in household: No; Exposure to Tobacco Smoke None; Cigarette Smoking Last 365 Days No; Reg Smoking Cessation Counseling No entered on: 01/15/18 01/15/2018 [facility] Family History No Data Provided for This Section Advance Directives No Data Provided for This Section Functional Status No Data Provided for This Section
--- OUTSIDE RECORDS SUMMARY | 2019-07-09 06:08 | XMS REPORT | Clinical Summary ---
Author Author [facility] [employer] [facility] Address Unknown Phone Unavailable Care Team Providers Care Metal Melter Name Role Phone Darion Juan MD PCP [...] 11AM and 1.5 tablet at 5PM. 05/07/2019 timolol (TIMOPTIC) 0.25 % Apply 1 drop 10 mL 12 ophthalmic to eye 2 8 solutionIndications: (two) times a Borderline glaucoma day. (glaucoma suspect), bilateral Active Problems Problem Noted Date Encounter for cosmetic surgery 03/12/2018 Family History Medical History Relation Name Comments [...] Health Maintenance Due Date Last Done Comments BREAST CANCER SCREENING 01/31/2010 COLONOSCOPY SCREENING 01/31/2010 SHINGLES VACCINES (#1) 01/31/2010 INFLUENZA VACCINE 07/01/2019 Implants Device Identifier Shelf Expiration Date Model / Serial / Lot Implanted Type Area Manufactur er 04/20/2022 334 1152 / [id number] / [id number] Breast Imp Cpg Cohesive Iii Med Plastic or Right: Breast MENTOR Height High Proj 345cc - Cosmetic [employer]LD[employer] [id number] - [id number] [employer] Implanted: Qty: 1 on 03/12/2018 by or Tissue Josué Armas MD Expanders or Sets 04/03/2022 334 [id number] / / Breast Imp Cpg Cohesive Iii Med Plastic or Left: Breast MENTOR Height High Proj 345cc - [id number] Cosmetic [employer] Implanted: Qty: 1 on 03/12/2018 by [employer] Josué Armas MD or Tissue Expanders or Sets 12/31/2022 [id number] / / [id number] Drain Wnd Chnl 15fr 3/16in Rnd Hbls Surgical N/A: N/A BARD Fl-Flut W/ /16in Trocar - Implants; MEDICAL [id number] Expanders; DIVISION Implanted: Qty: 3 on 03/12/2018 by Extenders; Josué Armas MD Surgical Wires 11/30/2022 [id number] / / [id number] Drain Wnd Chnl 15fr 3/16in Rnd Hbls Surgical N/A: N/A BARD Fl-Flut W/ /16in Trocar - Implants; MEDICAL [id number] Expanders; DIVISION Implanted: Qty: 1 on 03/12/2018 by [employer]enders; Josué Armas MD Surgical Wires Results Not on fileafter 07/08/2018 Insurance Type Payer Benefit Subscriber ID Effective Phone Address Plan / Dates Group HMO AETNA AETNA xxxxxxxxxx [id number] HMO,POS,EP resent O, MC/EC Advance Directives Patient has advance care planning documents on file. For more information, mika e contact: Yimi Vinson [address] [place] [address]
[2019-07-09 09:30] VITALS: BP 127/74
--- NOTE | 2019-07-09 15:32 | Operative Report ---
DATE OF PROCEDURE: 07/09/2019 SURGEON: Dominic Meraz MD PROCEDURE: An EGD with biopsies and colonoscopy with polypectomy. INDICATIONS FOR EGD: Upper abdominal pain and bloating. INDICATIONS FOR COLONOSCOPY: Colorectal cancer screening. MEDICATIONS: The patient was done under MAC, please see anesthesiologist's note. PROCEDURE IN DETAIL: With the patient in left lateral decubitus position, flexible fiberoptic Olympus gastroscope was introduced into the esophagus under direct visualization without any difficulty. An approximately 4 mm submucosal nodule was noted in the cervical esophagus and that was biopsied. The scope was then advanced with ease into the stomach. The patient is status post Maximo-en-Y. Anastomosis appeared patent. The efferent loop also was patent. There was no evidence of any marginal ulcers. The scope was retroflexed in the gastric pouch and some postoperative changes were noted. The scope was then straightened out. Biopsies were obtained from the gastric cuff as well as from the anastomosis and was subsequently withdrawn. The patient tolerated the procedure well. IMPRESSION: 1. Approximately 4 mm submucosal nodule in the cervical esophagus, biopsied. 2. Status post Maximo-en-Y. Efferent loop patent. No evidence of marginal ulcers. Biopsies were obtained from the gastric cuff as well as from the anastomosis. PLAN: Follow up histology. Initiate Protonix 40 mg one p.o. q.a.m. a.c. The patient was then turned around. After adequate lubrication of the anal canal, flexible fiberoptic Olympus colonoscope was inserted into the rectum with ease and advanced all the way to the cecum. Prep overall was suboptimal, but visualization was fair. The scope was then withdrawn slowly. Mucosa overlying the cecum, ascending, transverse, descending grossly appeared to be within normal limits. Approximately 6 minute hyperplastic-appearing polyps were removed per the hot biopsy forceps in the sigmoid colon and one polyp was removed per the hot biopsy forceps in the rectum. The scope was then retroflexed into the distal rectum and small internal hemorrhoids were noted, none of which was actively bleeding. The scope was then straightened out and was subsequently withdrawn. The patient tolerated the procedure well. IMPRESSION: 1. Sigmoid colon polyps x6, hot biopsied. 2. Rectal polyp x1 hot biopsied. 3. Internal hemorrhoids, none actively bleeding. PLAN: Follow up histology. Initiate high-fiber, low-fat diet. Initiate high-fiber supplement. The patient might benefit from a followup colonoscopy in 3 to 5 years. MD BISMARK Barr/BRIANNA /[id number] cc: Darion Juan DO
== END | disposition home or self-care (01) ==
LOC: OR 06:02
PROVIDERS: ATTEND Internal Medicine Gastroenterology
DX: K29.50 Unspecified chronic gastritis without bleeding (principal); K63.5 Polyp of colon; K62.1 Rectal polyp; K59.00 Constipation, unspecified; B96.81 Helicobacter pylori [H. pylori] as the cause of diseases classified elsewhere; K31.89 Other diseases of stomach and duodenum; K22.8 Other specified diseases of esophagus; K64.8 Other hemorrhoids; Z98.84 Bariatric surgery status; I20.9 Angina pectoris, unspecified; R00.1 Bradycardia, unspecified; Z88.6 Allergy status to analgesic agent; Z88.0 Allergy status to penicillin; Z01.810 Encounter for preprocedural cardiovascular examination
CPT/HCPCS: 43239; 45384; 93005; J1610; J2250; J2704; J3010; 45378

== ENCOUNTER → 2019-09-03 | Outpatient (CLI) | payer OTHER ==
[~2019-09-03] MED LIST changes: -EPHEDRINE SULFATE INJ 50 MG/10 ML SYR ONE; -FENTANYL CITRATE/PF 100MCG/2 ML INJ ONE; -GLUCAGON FOR INJ 1 MG VIAL ONE; -HYOSCYAMINE 0.125 MG TAB ONE; -MIDAZOLAM HCL 2 MG/2 ML VIAL ONE; -PROPOFOL IV EMULSION 10 MG/ML 50 ML VIAL ONE
--- NOTE | 2019-09-03 15:49 | Diagnostic Imaging Report ---
TECHNIQUE: Magnetic resonance imaging of the LEFT SHOULDER was performed WITHOUT injected contrast. COMPARISON: None available. HISTORY: Left shoulder FINDINGS: MUSCLES AND TENDONS: Rotator Cuff: Tendons: Interstitial tearing of the supraspinatus tendon at the humeral insertion for example coronal image 11 through 13. No full-thickness tear. Muscles: No focal muscle atrophy. Biceps Tendon: The long head of the biceps tendon is within the bicipital groove. Partial tearing extending from the bicipital groove. GLENOHUMERAL JOINT: Glenoid Labrum: Superior labral tear Articular Cartilage: No focal defect. AC JOINT AND ACROMION: No hypertrophic degenerative changes of the acromioclavicular joint. Downsloping acromion. BONE: No acute fracture. SOFT TISSUES: Otherwise, the soft tissues appear unremarkable. IMPRESSION: Supraspinatus interstitial tearing of the anterior fibers at the humeral insertion. No full-thickness tear. Long head biceps tendon partial tearing. Superior labral tear. Signed by: Dr. Darion Goer M.D. on 09/03/2019 3:45 PM
== END ==
LOC: MRI 14:28
PROVIDERS: ATTEND Family Medicine
DX: M25.512 Pain in left shoulder (principal)

== ENCOUNTER 2020-01-15 04:42 | Emergency (ER) | payer OTHER ==
[~2020-01-15] VITALS: Ht 154.9 cm; Wt 54.4 kg
[2020-01-15] MEDS ORDERED: HYDROMORPHONE 1MG/1ML INJ IM STA (06:52)
[2020-01-15] MEDS ORDERED: HYDROCODONE/APAP 10MG-325MG TAB PO ONE (07:00)
[2020-01-15] MEDS ORDERED: KETOROLAC TROMETHAMINE 60 MG/2 ML VIAL IM ONE (07:00)
== END 2020-01-15 07:54 | disposition home or self-care (01) ==
LOC: ER 04:42
DX: M54.41 Lumbago with sciatica, right side (principal); Z82.49 Family history of ischemic heart disease and other diseases of the circulatory system; Z88.5 Allergy status to narcotic agent; Z88.0 Allergy status to penicillin; I10 Essential (primary) hypertension; K21.9 Gastro-esophageal reflux disease without esophagitis; Z90.49 Acquired absence of other specified parts of digestive tract
CPT/HCPCS: 99283; J1170; J1885